=== PATIENT | male | born 1950 | race Caucasian/White ===

== ENCOUNTER 2016-11-25 07:21 | Outpatient (CLI) | payer MEDICARE, OTHER ==
--- NOTE | 2016-11-25 10:08 | Ultrasound Report ---
AORTA SCREEN: 11/25/2016 CLINICAL INDICATION: Hypertension. TECHNIQUE: Real-time sonographic imaging was performed by the [employer] through the aorta. Multiple liability claims representative static images were saved for review. FINDINGS: The abdominal aorta is normal in caliber, measuring 2.8 cm proximally , 2.3 cm in the mid portion, and 1.8 cm distally. The iliacs are normal in caliber. No free fluid is present. IMPRESSION: NO EVIDENCE OF ABDOMINAL AORTIC ANEURYSM. JOB #: [id number] EXT JOB #: [id number] [facility]
== END 2016-11-25 07:22 | disposition home or self-care (01) ==
LOC: DI 07:21
PROVIDERS: ATTEND Internal Medicine
DX: I10 Essential (primary) hypertension (principal)
CPT/HCPCS: 76706

== ENCOUNTER 2017-11-06 19:47 | Emergency (ER) | payer MEDICARE, OTHER ==
[2017-11-06 20:13] LABS: EOSINOPHILS % (AUTO) 6.2 %; HGB - HEMOGLOBIN 13.2 g/dL (14.0-18.0); LYMPHOCYTES % (AUTO) 55.4 %; MEAN CORPUSCULAR HEMOGLOBIN 28.6 pg (27.0-31.0); MEAN CORPUSCULAR HGB CONC 32.5 g/dL (32.0-36.0); MEAN PLATELET VOLUME 7.5 fL (7.4-11.4); MONOCYTES % (AUTO) 7.2 %; NEUTROPHILS % (AUTO) 30.2 %; PLT - PLATELET COUNT 224 10^3/uL (130-450); RED BLOOD COUNT 4.62 10^6/uL (4.70-6.10); RED CELL DISTRIBUTION WIDTH 13.9 % (12.0-15.0); WHITE BLOOD COUNT 7.2 x10^3/uL (4.8-10.8)
[2017-11-06] MEDS ORDERED: MORPHINE 10 MG/ML VIAL ONE (20:18)
[2017-11-06 20:20] LABS: ABNORMAL LYMPHS % (MANUAL) 0 %; BAND NEUTROPHILS % (MANUAL) 0 %
[2017-11-06] MEDS ORDERED: MORPHINE 10 MG/ML VIAL IVP STA (20:21)
[2017-11-06 20:23] LABS: INR 1.2 (0.8-1.2); PT - PROTHROMBIN TIME 13.8 secs (9.9-12.6)
[2017-11-06] MEDS ORDERED: fentaNYL 100 MCG/2 ML VIAL IVP STA (20:25)
[2017-11-06 20:26] LABS: ALBUMIN 4.2 g/dL (3.2-5.5); ALBUMIN/GLOBULIN RATIO 1.4 (1.0-2.2); BILIRUBIN,TOTAL 0.7 mg/dL (0.2-1.0); CALCIUM 9.9 mg/dL (8.5-10.3); CREATININE 0.8 mg/dL (0.6-1.2); TOTAL PROTEIN 7.1 g/dL (6.7-8.2)
[2017-11-06 20:31] LABS: BASOPHILS # (MANUAL) 0.1 10^3/uL (0-0.1); BASOPHILS % (MANUAL) 2 %; EOSINOPHILS # (MANUAL) 0.4 10^3/uL (0-0.7); LYMPHOCYTES # (MANUAL) 4.4 10^3/uL (1.5-3.5); LYMPHOCYTES % (MANUAL) 60 %; MONOCYTES # (MANUAL) 0.3 10^3/uL (0.0-1.0); NEUTROPHILS # (MANUAL) 1.9 10^3/uL (1.5-6.6); NEUTROPHILS % (MANUAL) 27 %
[2017-11-06 20:34] LABS: DIFFERENTIAL COMMENT MANUAL DIFFERENTIAL; PLATELET ESTIMATE, MANUAL NORMAL (130-450,000) (NORMAL); PLATELET MORPHOLOGY NORMAL APPEARANCE (NORMAL); RBC MORPHOLOGY (MULTIPLE) NORMAL APPEARANCE (NORMAL)
[2017-11-06] MEDS ORDERED: IOPAMIDOL-300 100 ML VIAL ONE (20:36)
--- NOTE | 2017-11-06 20:38 | ED Physician Documentation ---
PD HPI CHEST PAIN - Stated complaint Stated Complaint: AFIB/LOWER BACK PX - Chief complaint Chief Complaint: Cardiac - History obtained from History obtained from: Patient, Family - History of Present Illness Timing - onset: How many hours ago (2) Timing - onset during: Rest Timing - details: Abrupt onset, Still present Quality: Aching, Sharp, Stabbing Location: Substernal Radiation: Back Improved by: Nothing Associated symptoms: No: Nausea, Vomiting Similar symptoms before: No diagnosis Recently seen: Not recently seen - Additional information Additional information: Patient is a 66 year old male with a 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 patient states that the pain startd about two hours ago and will not stop. Patient states that the last time he had anything like this it was from a heart problem(flutter). Review of Systems Constitutional: denies: Fever, Chills Eyes: reports: Reviewed and negative Ears: reports: Reviewed and negative Nose: reports: Reviewed and negative Throat: reports: Reviewed and negative Cardiac: reports: Chest pain / pressure. denies: Pedal edema Respiratory: denies: Dyspnea, Cough GI: denies: Nausea, Vomiting Skin: denies: Rash, Lesions Musculoskeletal: reports: Back pain Neurologic: reports: Generalized weakness. denies: Focal weakness, Numbness, Difficulty speaking Immunocompromised: denies: Immunocompromised PD PAST MEDICAL HISTORY - Past Medical History Cardiovascular: Hypertension, Arrhythmia, Other Respiratory: Asthma Neuro: None Endocrine/Autoimmune: None GI: None : None HEENT: Chronic vision loss Psych: Claustrophobia Musculoskeletal: Osteoarthritis, Other Derm: None - Past Surgical History Past Surgical History: Yes General: Other Ortho: ACL reconstruction, Arthroscopic surgery, Other Cardiovascular: Pacemaker HEENT: Rhinoplasty - Present Medications Home Medications: Ambulatory Orders Medication Instructions Recorded Confirmed Albuterol [Ventolin Hfa] 1 - 2 puffs INH .USE DIRECTED 06/21/14 07/20/16 PRN Albuterol 2.5 mg INH QID 05/13/16 07/20/16 Aspirin 325 mg PO DAILY 05/13/16 07/20/16 Fluocinonide 1 applic TOP .USE DIRECTED 05/13/16 07/20/16 Fluticasone Propionate [Flovent 110 mcg INH BID 05/13/16 07/20/16 Hfa] Metoprolol Succinate 50 mg ORAL BID 05/13/16 07/20/16 Multivitamin [Theragran] 1 tab PO DAILY 05/13/16 07/20/16 diazePAM [Valium] 5 - 10 mg PO TID PRN #15 tablet 11/07/17 - Allergies Allergies/Adverse Reactions: Allergies Allergy/AdvReac Type Severity Reaction Status Date / Time Penicillins Allergy Rash Verified 11/06/17 19:54 - Social History Does the pt smoke?: No Smoking Status: Never smoker Does the pt drink ETOH?: Yes Does the pt have substance abuse?: No - Immunizations Immunizations are current?: Yes - POLST Patient has POLST: No PD ED PE NORMAL - General General: Alert and oriented X 3 - HEENT HEENT: Atraumatic - Neck Neck: Supple, no meningeal sign - Cardiac Cardiac: No murmur - Respiratory Respiratory: No respiratory distress - Derm Derm: Normal color, Warm and dry - Extremities Extremities: No deformity, Normal ROM s pain, No edema - Neuro Neuro: Alert and oriented X 3, No motor deficit, No sensory deficit, Normal speech PD ED PE EXPANDED - General General: Alert, In Pain - HEENT HEENT: Dry mucous membranes Results - Vitals Vitals: Vital Signs - 24 hr 11/06/17 11/06/17 11/06/17 19:50 20:19 20:32 Temperature 36.7 C Heart Rate 61 61 Respiratory 24 17 Rate Blood Pressure 128/71 150/90 H Blood Pressure 121/84 H [Left] Blood Pressure 130/86 H [Right] O2 Saturation 100 100 11/06/17 11/06/17 11/06/17 21:06 21:39 22:50 Temperature Heart Rate 60 60 72 Respiratory 17 16 21 Rate Blood Pressure 123/62 124/76 108/70 Blood Pressure [Left] Blood Pressure [Right] O2 Saturation 98 98 97 11/06/17 11/07/17 11/07/17 23:24 00:33 00:52 Temperature 36.6 C Heart Rate 60 60 59 L Respiratory 12 20 17 Rate Blood Pressure 102/66 100/64 122/72 Blood Pressure [Left] Blood Pressure [Right] O2 Saturation 97 98 98 Oxygen O2 Source Room air - EKG (time done) 2003 Rate: Rate (enter#) (60) Rhythm: Paced - Labs Labs: Laboratory Tests 11/06/17 11/06/17 11/06/17 20:08 20:08 20:08 WBC 7.2 RBC 4.62 L Hgb 13.2 L Hct 40.7 L MCV 88.0 MCH 28.6 MCHC 32.5 RDW 13.9 Plt Count 224 MPV 7.5 Neut # Not Reportable Lymph # Not Reportable [place] # Not Reportable Eos # Not Reportable Baso # Not Reportable Absolute Nucleated RBC Not Reportable Total Counted 100 Band Neuts % (Manual) 0 Reactive Lymphs % (Man) 1 Abnorm Lymph % (Manual) 0 Nucleated RBC % Not Reportable Neutrophils # (Manual) 1.9 Lymphocytes # (Manual) 4.4 H Monocytes # (Manual) 0.3 Eosinophils # (Manual) 0.4 Basophils # (Manual) 0.1 Differential Comment MANUAL DIFFERENTIAL Platelet Estimate NORMAL (130-450,000) Platelet Morphology NORMAL APPEARANCE RBC Morph Micro Appear NORMAL APPEARANCE PT INR APTT Sodium 139 Potassium 3.7 Chloride 101 Carbon Dioxide 25 Anion Gap 13.0 BUN 12 Creatinine 0.8 Estimated GFR (MDRD) 97 Glucose 118 H Calcium 9.9 Total Bilirubin 0.7 AST 22 ALT 15 Alkaline Phosphatase 51 Troponin I < 0.04 B-Natriuretic Peptide Total Protein 7.1 Albumin 4.2 Globulin 2.9 Albumin/Globulin Ratio 1.4 Lipase 30 11/06/17 11/06/17 11/06/17 20:08 20:08 22:51 WBC RBC Hgb Hct MCV MCH MCHC RDW Plt Count MPV Neut # Lymph # [place] # Eos # Baso # Absolute Nucleated RBC Total Counted Band Neuts % (Manual) Reactive Lymphs % (Man) Abnorm Lymph % (Manual) Nucleated RBC % Neutrophils # (Manual) Lymphocytes # (Manual) Monocytes # (Manual) Eosinophils # (Manual) Basophils # (Manual) Differential Comment Platelet Estimate Platelet Morphology RBC Morph Micro Appear PT 13.8 H INR 1.2 APTT 31.3 Sodium Potassium Chloride Carbon Dioxide Anion Gap BUN Creatinine Estimated GFR (MDRD) Glucose Calcium Total Bilirubin AST ALT Alkaline Phosphatase Troponin I < 0.04 B-Natriuretic Peptide 105 H Total Protein Albumin Globulin Albumin/Globulin Ratio Lipase - Rads (name of study) CT chest, abd pelvis angio Radiology: Final report received (mesenteric stranding unchanged from previous, normal aorta, no pe) PD MEDICAL DECISION MAKING - ED course Complexity details: reviewed old records, reviewed results, re-evaluated patient , considered differential, d/w patient, d/w family, d/w sap plant maintenance consultant ED course: Patient was seen immediately at bedside. Patient was in severe pain. ekg was performed which only showed a paced rhythm. IV access was gained and patient was treated with morphine 8mg. CT angio was ordered. Patient was treated with fentanyl 75mcg. Patient went to imaging. When patient returned the results were reviewed. Patient showed no dissection or pulmonary embolism. Patient's stomach was full of contents and his night meds. Patient's ct did reveal twisting of his mesentary, that looked similar to his previous CT. call specialist surgery, Dr. Anders was called and the case was discussed with him. He stated that it was not a surgical patient and that the pain was back pain. Patient was treated with valium and percocet. Patient's repeat troponin remained negative. Patient required no further work up and was stable for discharge with outpatient follow up. Departure - Departure Disposition: Home, Self Care Clinical Impression: Back pain Condition: Good Instructions: ED Neck Back Pain General Follow-Up: Jack Duarte MD [Primary Care Provider] - Within 3 Days Prescriptions: diazePAM [Valium] 5 - 10 mg PO TID PRN #15 tablet PRN Reason: Spasms Comments: Your diagnostics today were within normal limits. You can take motrin and tylenol as needed for pain and percocet for breakthrough pain. it is important that you follow up with your doctor on wednesday for further evaluation. You may return to the emergency department at any time for new, worsening or uncontrollable symptoms. Discharge Date/Time: 11/07/17 01:03
[2017-11-06] MEDS ORDERED: IOPAMIDOL-300 100 ML VIAL IVP ONE (21:02)
--- NOTE | 2017-11-06 22:19 | CT Preliminary Report ---
Exam: CT ABDOMEN ANGIO IMPRESSION: 1. No acute aortic abnormality demonstrated. 2. There is no significant aortic or branch vessel stenosis demonstrated. 3. There is diffuse edema within the small bowel mesentery within the left hemiabdomen, likely due to compromised venous drainage. There is some twisting of the mesenteric vessels. Similar appearance wa s also seen on the prior 05/13/2016 examination. This may be due to a mesenteric volvulus or internal hernia. No bowel obstruction is demonstrated. 4. No acute pulmonary abnormality demonstrated. 5. Severe coronary vascular calcification. [facility] SITE ID: [id number]
--- NOTE | 2017-11-06 22:19 | CT Preliminary Report ---
Exam: CT CHEST ANGIO (AORTA) IMPRESSION: 1. No acute aortic abnormality demonstrated. 2. There is no significant aortic or branch vessel stenosis demonstrated. 3. There is diffuse edema within the small bowel mesentery within the left hemiabdomen, likely due to compromised venous drainage. There is some twisting of the mesenteric vessels. Similar appearance wa s also seen on the prior 05/13/2016 examination. This may be due to a mesenteric volvulus or internal hernia. No bowel obstruction is demonstrated. 4. No acute pulmonary abnormality demonstrated. 5. Severe coronary vascular calcification. [facility] SITE ID: [id number]
--- NOTE | 2017-11-06 22:33 | CT Report ---
EXAM: CT ANGIOGRAM CHEST AND ABDOMEN EXAM DATE: 11/06/2017 09:01 PM. CLINICAL HISTORY: Severe chest pain with radiation to back. COMPARISONS: 06/15/2016; ultrasound 11/25/2016; CT 05/13/2016. TECHNIQUE: Routine axial helical CT angiographic imaging was performed through the chest and abdomen. IV Contras t: 100 mL Isovue-300. Reconstructions: Coronal, sagittal, and 3D MIP reconstructions of the aorta. In accordance with CT protocol optimization, one or more of the following dose reduction techniques w ere utilized for this exam: automated exposure control, adjustment of mA and/or KV based on patient s ize, or use of iterative reconstructive technique. FINDINGS: Vascular Structures: Aorta is normal in caliber. No dissection or aneurysm. No incidental main or lob ar pulmonary arterial embolism demonstrated. Small bilateral accessory renal arteries are noted. No c ritical aortic or branch vessel stenosis. No significant aortic or branch vessel atherosclerosis. Lungs/Pleura: There is a small calcified left upper lobe anterolaterally located granuloma. Linear cool bsegmental opacities within the left lower lobe are noted. These are most fitting with atelectasis an d/or scarring. No significant pulmonary consolidation. No effusion. Mediastinum: There is severe coronary vascular calcification. Normal heart size. No pericardial effus ion. No pathologic mediastinal lymphadenopathy demonstrated. Chest wall: There is a left subclavian pacemaker device with the tips of the right atrium and right v entricle apex. No pathologic lymphadenopathy. Thyroid: No definite suspicious nodule. Abdominal Organs: Normal. The liver, spleen, pancreas, adrenal glands, gallbladder and kidneys are no rmal in size and demonstrate no masses or abnormal enhancement. Bowel: The stomach is moderately distended with ingested fluid. Rounded hyperdense abnormality within the gastric body centrally (image 115 series 5), likely ingested medication tablet. No abnormally di lated small bowel loops noted to suggest obstruction at this time. Appendix is not imaged on this exa mination. Peritoneal Cavity: As was noted on the prior examination, there is diffuse edema within the small bow el mesentery. There is twisting of the mesenteric vessels noted. Other: No ascites or pathological lymphadenopathy noted elsewhere. There is no abdominal hernia. Bones: No definite suspicious bony lesion. Stable T11 vertebral fracture with exaggerated kyphosis. M oderate to severe multilevel degenerative change within the spine. IMPRESSION: 1. No acute aortic abnormality demonstrated. 2. There is no significant aortic or branch vessel stenosis demonstrated. 3. There is diffuse edema within the small bowel mesentery within the left hemiabdomen, likely due to compromised venous drainage. There is some twisting of the mesenteric vessels. Similar appearance wa s also seen on the prior 05/13/2016 examination. This may be due to a mesenteric volvulus or internal hernia. No bowel obstruction is demonstrated. 4. No acute pulmonary abnormality demonstrated. 5. Severe coronary vascular calcification. [facility] Referring Provider Line: [phone] SITE ID: [id number]
[2017-11-07] MEDS ORDERED: diazePAM 5 MG TABLET PO STA (00:19)
[2017-11-07] MEDS ORDERED: oxyCOD/ACETAMIN 5 MG/325 MG TABLET PO STA (00:19)
[2017-11-07] MEDS ORDERED: oxyCODONE/ACET 5/325 Prepack 4 PO STA (00:36)
[2017-11-07 00:54] VITALS: BP 122/72
--- NOTE | 2017-11-08 06:59 | CONSULTATION NOTE ---
DATE OF SERVICE: 11/06/2017 Physician: Shay Glynn MD REFERRING PHYSICIAN: Dr. Campos REASON FOR REFERRAL: Back pain with abnormal finding on CT scan of his abdomen and pelvis. HISTORY OF PRESENT ILLNESS: The patient is a 66-year-old male who presents to the emergency room with increasing back pain. He has had longstanding back pain with known, according to him, burst in his back. He has chronic pain. The pain has become worse over today and therefore he came to the emergency room. He was given pain medication and his pain is now resolved. He had a CT scan of his chest, abdomen and pelvis to rule out an aneurysm or dissection. This showed an abnormal swirl pattern on the small intestine with some venous congestion. His history is significant for similar finding a year and a half ago in which he underwent exploratory laparotomy. At that time, he did not have any intra-abdominal pathology and he was closed after doing an incidental appendectomy. At that time, the CT scan did show thickening of the small bowel and he also was complaining of abdominal pain. Neither of those findings are currently present. He has no complaints of abdominal pain whatsoever or any nausea or vomiting. MEDICATIONS 1. Albuterol. 2. Aspirin. 3. Flecainide. 4. Flovent. 5. Metoprolol. 6. Diazepam. ALLERGIES: PENICILLINS. PAST SURGICAL HISTORY 1. Exploratory laparotomy. 2. Pacemaker placement. 3. Rhinoplasty. 4. ACL repair. MEDICAL PROBLEMS: Arthritis, hypertension, arrhythmia, and asthma. SOCIAL HISTORY: The patient is . FAMILY HISTORY: Noncontributory. HABITS: The patient denies any smoking or drug use. He does use alcohol. REVIEW OF SYSTEMS: A complete review of system was obtained. Pertinent positives are musculoskeletal, back pain; pulmonary, occasional shortness of breath. A 12-point review of systems was obtained with pertinent positives discussed and all others being negative. PHYSICAL EXAMINATION VITAL SIGNS: Temperature 36.7, pulse 61, blood pressure 150/90. GENERAL: The patient is lying in bed. He is cooperative and pleasant and is not in any significant distress at the current time. EYES: Nonicteric. NECK: No lymphadenopathy. HEART: Regular. LUNGS: Clear. ABDOMEN: Soft, nontender. No hernias. EXTREMITIES: No edema or cyanosis. NEUROLOGIC: The patient appears to be neurologically intact without any deficit. PSYCHOLOGIC: The patient is coherent, cooperative, and appears to answer questions fully. DIAGNOSTIC DATA: Abdomen CTA shows no abnormalities with the aorta. There is some edema of the small bowel mesentery with some venous drainage possibility. There is some twisting of the mesentery, but there is no bowel obstruction or thickening being present. ASSESSMENT 1. The patient is a visit to the emergency room due to back pain, which has resolved. Recommend that he follow up with an orthopedic surgeon for his back and possibly pain specialist, along with following up with his primary care. 2. Abnormal radiographic finding on the CT scan with history of exploratory laparotomy with similar findings, having no intra-abdominal problems at that time. He currently is asymptomatic, having no abdominal pain whatsoever or any nausea or vomiting. There is no thickening of the bowel being seen on the CT scan. At this time, I feel that this can be followed and will be seen in clinic. If he does have any abdominal discomfort or other problems, then consideration for laparoscopy versus laparotomy. PLAN: I would recommend the patient follow up in surgery clinic in 2 weeks or if he has any pain or abdominal symptoms in the maintain time, then return back to the emergency room. TD: 11/08/2017 07:58
== END 2017-11-07 01:03 | disposition home or self-care (01) ==
LOC: ED 19:47
DX: M54.5 Low back pain (principal); I10 Essential (primary) hypertension; M19.90 Unspecified osteoarthritis, unspecified site; J45.909 Unspecified asthma, uncomplicated; I49.9 Cardiac arrhythmia, unspecified; I48.92 Unspecified atrial flutter; Z95.0 Presence of cardiac pacemaker; Z79.82 Long term (current) use of aspirin
CPT/HCPCS: 36415; 71275; 74175; 80053; 83690; 83880; 84484; 85025; 85610; 85730; 93005; 96374; 96375; 99283; 99284; A9270; Q9967

== ENCOUNTER 2018-06-06 12:29 | Emergency (ER) | payer MEDICARE, OTHER ==
[2018-06-06 13:05] LABS: BASOPHILS # (AUTO) 0.1 10^3/uL (0.0-0.1); BASOPHILS % (AUTO) 0.9 %; EOSINOPHILS # (AUTO) 0.3 10^3/uL (0.0-0.7); EOSINOPHILS % (AUTO) 3.9 %; HGB - HEMOGLOBIN 15.1 g/dL (14.0-18.0); LYMPHOCYTES # (AUTO) 1.6 10^3/uL (1.5-3.5); MEAN CORPUSCULAR HEMOGLOBIN 30.1 pg (27.0-31.0); MEAN CORPUSCULAR HGB CONC 33.8 g/dL (32.0-36.0); MEAN CORPUSCULAR VOLUME 89.1 fL (80.0-94.0); MEAN PLATELET VOLUME 7.9 fL (7.4-11.4); MONOCYTES # (AUTO) 0.4 10^3/uL (0.0-1.0); MONOCYTES % (AUTO) 5.2 %; NEUTROPHILS # (AUTO) 4.7 10^3/uL (1.5-6.6); PLT - PLATELET COUNT 202 10^3/uL (130-450); RED BLOOD COUNT 5.01 10^6/uL (4.70-6.10); RED CELL DISTRIBUTION WIDTH 13.3 % (12.0-15.0)
[2018-06-06 13:20] LABS: ALBUMIN 4.1 g/dL (3.2-5.5); ALBUMIN/GLOBULIN RATIO 1.3 (1.0-2.2); BILIRUBIN,TOTAL 1.2 mg/dL (0.2-1.0); CALCIUM 9.2 mg/dL (8.5-10.3); CREATININE 0.9 mg/dL (0.6-1.2); TOTAL PROTEIN 7.2 g/dL (6.7-8.2)
[2018-06-06] MEDS ORDERED: MELOXICAM 7.5 MG TABLET PO STA (13:53)
--- NOTE | 2018-06-06 14:07 | ED Physician Documentation ---
History of Present Illness - Stated complaint Stated Complaint: ABD PX/WEAKNESS - Chief complaint Chief Complaint: Abd Pain - History obtained from History obtained from: Patient - History of Present Illness Timing: Today, How many hours ago (several) Pain level max: 6 Pain level now: 4 - Additonal information Additional information: Patient is a 67-year-old male who presents with epigastric pain earlier today. This started after eating and has since resolved. No chest pain. No shortness of breath. Also states that he has midthoracic back pain. This is a chronic ongoing issue for him. States it is is the same as his normal back pain. He wanted to ensure that his pacemaker was still functioning correctly. No shortness of breath. No syncope. Back pain is better with rest and worse with movement Review of Systems Ten Systems: 10 systems reviewed and negative Constitutional: denies: Fever, Chills : denies: Dysuria, Frequency, Hesitancy Skin: denies: Rash Musculoskeletal: denies: Neck pain Neurologic: denies: Focal weakness, Numbness, Headache, Head injury PD PAST MEDICAL HISTORY - Past Medical History Cardiovascular: Hypertension, Arrhythmia, Other Respiratory: Asthma Endocrine/Autoimmune: None GI: None : None HEENT: Chronic vision loss Psych: Claustrophobia Musculoskeletal: Osteoarthritis, Other Derm: None - Past Surgical History Past Surgical History: Yes General: Other Ortho: ACL reconstruction, Arthroscopic surgery, Other Cardiovascular: Pacemaker HEENT: Rhinoplasty - Present Medications Home Medications: Ambulatory Orders Medication Instructions Recorded Confirmed Albuterol [Ventolin Hfa] 1 - 2 puffs INH .USE DIRECTED 06/21/14 07/20/16 PRN Albuterol 2.5 mg INH QID 05/13/16 07/20/16 Aspirin 325 mg PO DAILY 05/13/16 07/20/16 Fluocinonide 1 applic TOP .USE DIRECTED 05/13/16 07/20/16 Fluticasone Propionate [Flovent 110 mcg INH BID 05/13/16 07/20/16 Hfa] Metoprolol Succinate 50 mg ORAL BID 05/13/16 07/20/16 Multivitamin [Theragran] 1 tab PO DAILY 05/13/16 07/20/16 diazePAM [Valium] 5 - 10 mg PO TID PRN #15 tablet 11/07/17 Meloxicam [Mobic] 7.5 mg PO BID PRN #20 tablet 06/06/18 - Allergies Allergies/Adverse Reactions: Allergies Allergy/AdvReac Type Severity Reaction Status Date / Time Penicillins Allergy Rash Verified 06/06/18 12:39 - Social History Does the pt smoke?: No Smoking Status: Never smoker Does the pt drink ETOH?: Yes Does the pt have substance abuse?: No - Immunizations Immunizations are current?: Yes - POLST Patient has POLST: No PD ED PE NORMAL - Vitals Vital signs reviewed: Yes - General General: Alert and oriented X 3, No acute distress, Well developed/nourished - HEENT HEENT: PERRL, Moist mucous membranes - Neck Neck: Supple, no meningeal sign - Cardiac Cardiac: RRR, Strong equal pulses - Respiratory Respiratory: No respiratory distress, Clear bilaterally - Abdomen Abdomen: Soft, Non tender, Non distended - Back Back: No spinal TTP (No midline tenderness to palpation or percussion. No step- off or deformity.) - Derm Derm: Warm and dry - Extremities Extremities: No deformity, No edema, No calf tenderness / cord - Neuro Neuro: Alert and oriented X 3, main line assembler 2-12 intact, No motor deficit, No sensory deficit - Psych Psych: Normal mood, Normal affect Results - Vitals Vitals: Vital Signs - 24 hr 06/06/18 06/06/18 06/06/18 12:33 13:00 14:00 Temperature 36.2 C L Heart Rate 60 60 60 Respiratory 18 15 16 Rate Blood Pressure 119/73 112/69 106/73 O2 Saturation 98 95 95 06/06/18 14:35 Temperature 36.4 C L Heart Rate 60 Respiratory 14 Rate Blood Pressure 101/70 O2 Saturation 94 Oxygen O2 Source Room air - EKG (time done) 1241 Rate: Rate (enter#) (61) Rhythm: Paced - Labs Labs: Laboratory Tests 06/06/18 06/06/18 06/06/18 12:55 12:55 12:55 WBC 7.0 RBC 5.01 Hgb 15.1 Hct 44.6 MCV 89.1 MCH 30.1 MCHC 33.8 RDW 13.3 Plt Count 202 MPV 7.9 Neut # (Auto) 4.7 Lymph # (Auto) 1.6 [place] # (Auto) 0.4 Eos # (Auto) 0.3 Baso # (Auto) 0.1 Absolute Nucleated RBC 0.00 Nucleated RBC % 0.0 Sodium 138 Potassium 4.6 Chloride 101 Carbon Dioxide 29 Anion Gap 8.0 BUN 12 Creatinine 0.9 Estimated GFR (MDRD) 84 L Glucose 126 H Calcium 9.2 Total Bilirubin 1.2 H AST 32 ALT 27 Alkaline Phosphatase 52 Troponin I < 0.04 Total Protein 7.2 Albumin 4.1 Globulin 3.1 Albumin/Globulin Ratio 1.3 Lipase 37 - Rads (name of study) cxr Radiology: Prelim report reviewed, EMP read contemporaneously, See rad report ( Left infrahilar and costophrenic angle airspace process, question atelectasis versus infiltrate. Otherwise no acute findings) PD MEDICAL DECISION MAKING - ED course Complexity details: reviewed results, re-evaluated patient, considered differential, d/w patient ED course: Patient is a 67-year-old male who presents to the emergency department with epigastric pain that is since resolved. Also had midthoracic back pain which is chronic for him. Feels better after meloxicam. No acute findings on EKG or laboratory findings. Does not want to stay for repeat troponin. No shortness of breath. No chest pain. Will follow up with his PCP. Patient counseled regarding signs and symptoms for which I believe and urgent re-evaluation would be necessary. Patient with good understanding of and agreement to plan and is comfortable going home at this time This document was made in part using voice recognition software. While efforts are made to proofread this document, sound alike and grammatical errors may occur. - Sepsis Event Vital Signs: Vital Signs - 24 hr 06/06/18 06/06/18 06/06/18 12:33 13:00 14:00 Temperature 36.2 C L Heart Rate 60 60 60 Respiratory 18 15 16 Rate Blood Pressure 119/73 112/69 106/73 O2 Saturation 98 95 95 06/06/18 14:35 Temperature 36.4 C L Heart Rate 60 Respiratory 14 Rate Blood Pressure 101/70 O2 Saturation 94 Oxygen O2 Source Room air Departure - Departure Disposition: 01 Home, Self Care Clinical Impression: Epigastric pain Back pain Qualifiers: Back pain location: thoracic back pain Chronicity: chronic Back pain laterality : bilateral Qualified Code(s): M54.6 - Pain in thoracic spine Condition: Good Instructions: ED Abdominal Pain Unkn Cause, ED Neck Back Pain General Follow-Up: Jack Duarte MD [Primary Care Provider] - Within 1 week Prescriptions: Meloxicam [Mobic] 7.5 mg PO BID PRN #20 tablet PRN Reason: Pain Comments: Return if you worsen. Your laboratory testing and x-rays do not show any acute abnormalities today other than likely atelectasis in your lungs. You need to make sure that you are continuing to take deep breaths. Discharge Date/Time: 06/06/18 14:44
--- NOTE | 2018-06-06 14:26 | XRAY Report ---
Procedure Date: 06/06/2018 Accession Number: [id number] / [id number] Procedure: XR - Chest 1 View X-Ray CPT Code: 50540 FULL RESULT: EXAM: CHEST RADIOGRAPHY EXAM DATE: 06/06/2018 02:10 PM. CLINICAL HISTORY: Chest pain. COMPARISON: 10/16/2008 chest x-ray and chest CT 11/06/2017. TECHNIQUE: 1 view. FINDINGS: Lungs/Pleura: Left infrahilar and CP angle airspace process, question atelectasis versus infiltrate. No other focal opacities evident. No pleural effusion. No pneumothorax. Mediastinum: Within exam limitations, the cardiomediastinal contour is normal. Other: Dual-lead left subclavian transvenous pacemaker. IMPRESSION: Left infrahilar and CP angle airspace process, question atelectasis versus infiltrate. Otherwise no acute findings. RADIA
[2018-06-06 14:43] VITALS: BP 101/70
== END 2018-06-06 14:44 | disposition home or self-care (01) ==
LOC: ED 12:29
DX: R10.13 Epigastric pain (principal); M54.6 Pain in thoracic spine
CPT/HCPCS: 36415; 71045; 80053; 83690; 84484; 85025; 93005; 99283; A9270

== ENCOUNTER 2020-05-01 17:11 | Outpatient (CLI) | payer MEDICARE, OTHER | END 2020-05-01 23:59 | disposition critical access hospital (66) | LOC: EMS 17:11 | PROVIDERS: ATTEND Surgery | DX: M79.89 Other specified soft tissue disorders (principal) | CPT/HCPCS: A0425; A0429 ==

== ENCOUNTER 2020-05-01 17:39 | Emergency (ER) | payer MEDICARE, OTHER ==
--- NOTE | 2020-05-01 19:07 | XRAY Report ---
PROCEDURE: Foot 3 View RT INDICATIONS: contusion dorsum TECHNIQUE: 3 views of the foot were acquired. COMPARISON: None FINDINGS: Bones: No acute fractures or dislocations. No suspicious bony lesions. Osteoarthritic changes are n oted throughout midfoot and forefoot joints. Well-defined plantar calcaneal enthesophyte is seen. Wel l-corticated bony fragment over dorsal aspect of distal talus is seen likely represent old avulsion i njury. Soft tissues: No tibiotalar joint effusion. Achilles tendon appears normal. IMPRESSION: No acute right foot fracture or dislocation. Likely old healed avulsion injury involving dorsal aspec t of distal talus. Mild midfoot and forefoot joint osteoarthritis. Reviewed by: Db Mckeon MD on 05/01/2020 7:06 PM PDT Approved by: Db Mckeon MD on 05/01/2020 7:06 PM PDT Station ID: [id number]
--- NOTE | 2020-05-01 19:15 | ED Physician Documentation ---
History of Present Illness - Stated complaint Stated Complaint: FOOT SWELLING - Chief complaint Chief Complaint: Ext Problem - History obtained from History obtained from: Patient - History of Present Illness Timing: Prior to arrival - Additonal information Additional information: 69-year-old male presents to the emergency department with a chief complaint of right foot swelling and ecchymosis. He reports that 3 days ago his cane slid down and landed on the top of his right foot. He denies that he has had pain or more difficulty walking however he has been wearing JULIA hose because he recently had a hip replacement. This afternoon when he took the JULIA hose off he noted that his right foot was markedly ecchymotic and swollen. Patient is taking Eliquis as he has a history of an atrial pacemaker. He is also taking 81 mg a day of aspirin He denies any difficulty breathing or chest pain Review of Systems Constitutional: denies: Fever, Chills : denies: Dysuria, Frequency Skin: denies: Rash, Lesions Musculoskeletal: reports: Joint swelling, Other (ecchymosis) PD PAST MEDICAL HISTORY - Past Medical History Cardiovascular: Hypertension, Arrhythmia, Other Respiratory: Asthma Endocrine/Autoimmune: None GI: None : None HEENT: Chronic vision loss Psych: Claustrophobia Musculoskeletal: Osteoarthritis, Other Derm: None - Past Surgical History Past Surgical History: Yes General: Other Ortho: ACL reconstruction, Arthroscopic surgery, Other Cardiovascular: Pacemaker HEENT: Rhinoplasty - Present Medications Home Medications: Ambulatory Orders Medication Instructions Recorded Confirmed Albuterol [Ventolin Hfa] 1 - 2 puffs INH .USE DIRECTED 06/21/14 07/20/16 PRN Albuterol 2.5 mg INH QID 05/13/16 07/20/16 Aspirin 81 mg PO DAILY 05/13/16 07/20/16 Fluocinonide 1 applic TOP .USE DIRECTED 05/13/16 07/20/16 Fluticasone Propionate [Flovent 110 mcg INH BID 05/13/16 07/20/16 Hfa] Metoprolol Succinate 75 mg ORAL BID 05/13/16 07/20/16 Multivitamin [Theragran] 1 tab PO DAILY 05/13/16 07/20/16 Apixaban [Eliquis] 5 mg ORAL BID 05/01/20 05/01/20 oxyCODONE [Roxicodone] PRN 05/01/20 - Allergies Allergies/Adverse Reactions: Allergies Allergy/AdvReac Type Severity Reaction Status Date / Time Penicillins Allergy Rash Verified 05/01/20 17:45 - Social History Does the pt smoke?: No Smoking Status: Never smoker Does the pt drink ETOH?: Yes Does the pt have substance abuse?: No - Immunizations Immunizations are current?: Yes - POLST Patient has POLST: No PD ED PE NORMAL - General General: Alert and oriented X 3, No acute distress, Well developed/nourished - Respiratory Respiratory: No respiratory distress, Clear bilaterally - Abdomen Abdomen: Normal bowel sounds, Non tender - Extremities Extremities: Other (Right foot is swollen to the ankle. Generalized ecchymosis of the entire foot. There is no focal bony tenderness. He is got full range of motion of the ankle in all planes.) Results - Vitals Vitals: Vital Signs - 24 hr 05/01/20 17:42 Temperature 37.2 C Heart Rate 69 Respiratory 18 Rate Blood Pressure 113/77 O2 Saturation 97 Oxygen O2 Source Room air - Rads (name of study) right foot Radiology: Final report received (No acute right foot fracture dislocation. Likely old healed avulsion injury involving dorsal aspect of distal talus. Mild midfoot and forefoot joint osteoarthritis) PD MEDICAL DECISION MAKING - ED course Complexity details: reviewed results, d/w patient ED course: 69-year-old male here with right foot swelling and ecchymosis. Swelling is limited to the foot. He reports that his heavy cane fell down and hit him in the foot 3 days ago. X-ray shows no acute fracture dislocation and he is ambulating with great comfort. This gentleman is on a blood thinner and I discussed that this is likely a contusion that will resolve on its own. I am not suspicious for DVT in this gentleman. He has no dyspnea and he has remained adequately on blood thinners since his hip replacement. Departure - Departure Disposition: 01 Home, Self Care Clinical Impression: Contusion of right foot Qualifiers: Encounter type: initial encounter Qualified Code(s): S90.31XA - Contusion of right foot, initial encounter Condition: Stable Record reviewed to determine appropriate education?: Yes Instructions: ED Contusion Lower Extr Ch Comments: Harrison the x-ray does not show anything broken in your foot. What you have is bruising and this is because you are on the blood thinners. It is okay to continue to wear the JULIA hose at home. Continuing to ice the foot is appropriate. Return here if you have increased swelling, difficulty breathing or any other concerns or signs of infection
[2020-05-01 19:22] VITALS: BP 133/69
== END 2020-05-01 19:36 | disposition home or self-care (01) ==
LOC: EDUNIT# → ED 17:39
DX: S90.31XA Contusion of right foot, initial encounter (principal); W22.8XXA Striking against or struck by other objects, initial encounter; Z96.649 Presence of unspecified artificial hip joint; I10 Essential (primary) hypertension; J45.909 Unspecified asthma, uncomplicated; Z95.0 Presence of cardiac pacemaker; Z79.82 Long term (current) use of aspirin; M19.071 Primary osteoarthritis, right ankle and foot; Z79.01 Long term (current) use of anticoagulants; Z86.79 Personal history of other diseases of the circulatory system
CPT/HCPCS: 99282; 99283

== ENCOUNTER 2020-11-06 15:20 | Outpatient (CLI) | payer MEDICARE, OTHER ==
--- NOTE | 2020-11-06 18:46 | XRAY Report ---
PROCEDURE: Hand 3 View BILAT INDICATIONS: M19.90 TECHNIQUE: 3 views of the right and left hand(s) acquired. COMPARISON: None FINDINGS: Bones: No fractures or dislocations. No suspicious bony lesions. No osseous erosive changes. No pe riarticular osteopenia. Mild bilateral first CMC joint osteoarthritis. Soft tissues: No suspicious soft tissue calcifications. IMPRESSION: 1. Mild bilateral first CMC joint osteoarthritis. 2. No acute osseous lesion. If there persistent symptoms or continued clinical concern for pathology, then advanced imaging (CT, MR, bone scan) should be considered for further evaluation. Reviewed by: Myesha Simons MD, PhD on 11/06/2020 5:45 PM [place] Approved by: Myesha Simons MD, PhD on 11/06/2020 5:45 PM [facility] Station ID: [id number]
== END 2020-11-06 15:21 | disposition home or self-care (01) ==
LOC: DI.N 15:20
PROVIDERS: ATTEND Internal Medicine
DX: M18.0 Bilateral primary osteoarthritis of first carpometacarpal joints (principal)

== ENCOUNTER 2023-02-22 15:26 | Outpatient (CLI) | payer MEDICARE, OTHER ==
--- NOTE | 2023-02-22 16:47 | Ultrasound Report ---
PROCEDURE: Duplex Ext Veins Left INDICATIONS: PAIN IN LEFT LEG TECHNIQUE: Real-time imaging, as well as color and pulse Doppler interrogation, were performed of the lower extr emity deep veins from the inguinal ligament to the popliteal fossa. COMPARISON: None. FINDINGS: The deep veins are normally compressible, and free of intraluminal thrombus. Color and pu lse Doppler demonstrate normal phasic intraluminal flow. There is normal augmentation response to di stal compression maneuver. IMPRESSION: No evidence of left lower extremity deep venous thrombosis. Reviewed by: Sarath Gonzalez MD on 02/22/2023 4:45 PM PDT Approved by: Sarath Gonzalez MD on 02/22/2023 4:45 PM PDT Station ID: [id number]
--- NOTE | 2023-02-22 23:09 | XRAY Report ---
PROCEDURE: Knee 3 View LT INDICATIONS: PAIN IN LEFT LOWER LEG TECHNIQUE: 3 views of the left knee(s) were acquired. COMPARISON: None. FINDINGS: Bones: Left knee arthroplasty components are in position. No definite periprosthetic lucency. No acu te fractures or dislocation. Soft tissues: Small knee joint effusion. No suspicious soft tissue calcifications or masses. IMPRESSION: 1. Intact left knee prosthesis. 2. Small joint effusion. Reviewed by: Andressa Talamantes MD on 02/22/2023 11:08 PM PDT Approved by: Andressa Talamantes MD on 02/22/2023 11:08 PM PDT Station ID: [id number]
--- NOTE | 2023-02-22 23:12 | XRAY Report ---
PROCEDURE: Ankle 3 View LT INDICATIONS: PAIN IN LEFT LOWER LEG TECHNIQUE: 3 views of the ankle were acquired. COMPARISON: None. FINDINGS: Bones: No fractures or dislocations. Ankle mortise is normally aligned. No suspicious bony lesions . Tiny plantar calcaneal spur. Soft tissues: No tibiotalar joint effusion. There is abnormal thickening in the mid Achilles tendon as well as several punctate calcific foci.. IMPRESSION: 1. No suspicious bony abnormality. 2. Findings suggestive of Achilles tendinopathy/partial tearing, probably chronic. Reviewed by: Andressa Talamantes MD on 02/22/2023 11:10 PM PDT Approved by: Andressa Talamantes MD on 02/22/2023 11:10 PM PDT Station ID: [id number]
== END 2023-02-22 15:27 | disposition home or self-care (01) ==
LOC: DI 15:26
PROVIDERS: ATTEND Internal Medicine
DX: M79.662 Pain in left lower leg (principal); M25.462 Effusion, left knee; Z96.652 Presence of left artificial knee joint